=== PATIENT | male | born 1995 | race African-American/Black ===

== ENCOUNTER 2018-06-05 20:15 | Inpatient (IN) | payer OTHER ==
[2018-06-05 20:35] VITALS: TEMP 97.8; BMI 21.2
[2018-06-05] MEDS ORDERED: ONDANSETRON 4 MG/2 ML VIAL ONE (21:14)
[2018-06-05] MEDS ORDERED: SODIUM CHLORIDE 1,000 ML IV STA ×3 (21:27→23:54)
--- NOTE | 2018-06-05 21:31 | PDOC ---
History of Present Illness - General Chief Complaint: Nausea/Vomiting Stated Complaint: STOMACH VIRUS Time Seen by Provider: 06/05/18 21:02 History Source: Patient, Parent(s) Exam Limitations: Clinical Condition - History of Present Illness Initial Comments: 06/05/18 21:54 22M with no PMH presents to the ER with a chief complaint of nausea and vomiting since this morning. Patient states last night he was drinking alcohol, both liquor and beer, and also smoking marijuana. He ate and went to bed woke up and started vomiting. He states every time he vomits he starts to sweat and then gets chills. He states he ate rice and beans with chicken and ribs last night. No one else got sick. The patient does admit to drinking alcohol and smoking marijuana more than usual. Denies daily alcohol use. he denies chest pain or shortness of breath. He endorses what sounds like suprapubic pain. He does endorse some diffuse moderate abdominal pain. He denies urinary symptoms. The patient's mother is at bedside. Past History - Travel Traveled outside of the country in the last 30 days: No Close contact w/someone who was outside of country & ill: No - Past Medical History Allergies/Adverse Reactions: Allergies Allergy/AdvReac Type Severity Reaction Status Date / Time No Known Allergies Allergy Verified 06/05/18 20:35 Home Medications: Ambulatory Orders NK [No Known Home Medication] 06/05/18 COPD: No - Immunization History Immunization Up to Date: No - Suicide/Smoking/Psychosocial Hx Smoking History: Never smoked Have you smoked in the past 12 months: No Information on smoking cessation initiated: No Hx Alcohol Use: Yes Drug/Substance Use Hx: Yes Substance Use Type: Alcohol, Marijuana Review of Systems - Review of Systems Able to Perform ROS?: Yes Is the patient limited Moroccan proficient: No Constitutional: Yes: Chills, Fever (subjective. not measured) HEENTM: No: Symptoms Reported, See HPI, Eye Pain, Blurred Vision, Tearing, Recent change in vision, Double Vision, Cataracts, Ear Pain, Ocular Prothesis, Ear Discharge, Nose Pain, Nose Congestion, Tinnitus, Nose Bleeding, Hearing Loss , Throat Pain, Throat Swelling, Mouth Pain, Dental Problems, Difficulty Swallowing, Mouth Swelling, Other Respiratory: No: Symptoms reported, See HPI, Cough, Orthopnea, Shortness of Breath, SOB with Exertion, SOB at Rest, Stridor, Wheezing, Productive cough, Hemoptysis, Other Cardiac (ROS): No: Symptoms Reported, See HPI, Chest Pain, Edema, Irregular Heart Rate, Lightheadedness, Palpitations, Syncope, Chest Tightness, Other ABD/GI: Yes: See HPI, Nausea, Vomiting (bilious ), Other (abdominal pain) : Yes: Other (suprapubic pain) Musculoskeletal: No: Symptoms Reported, See HPI, Back Pain, Gout, Joint Pain, Joint Swelling, Muscle Pain, Muscle Weakness, Neck Pain, Joint Stiffness, Other Integumentary: No: Symptoms Reported, See HPI, Bruising, Change in Color, Change in Hair/Nails, Dryness, Erythema, Flushing, Lesions, Lumps, Pallor, Pruritus, Rash, Sweating, Other Neurological: No: Symptoms reported, See HPI, Headache, Numbness, Paresthesia, Pre-Existing Deficit, Seizure, Tingling, Tremors, Weakness, Unsteady Gait, Ataxia, Dizziness, Other Psychiatric: No: Anxiety, Depression, Frequent Crying, Stressors, Sleep Pattern Change, Emotional Problems, Mood Swings, Change in Appetite, Other Endocrine: No: Symptoms Reported, See HPI, Excessive Sweating, Flushing, Intolerance to Cold, Intolerance to Heat, Increased Hunger, Increased Thirst, Increased Urine, Unexplained Weight Gain, Unexplained Weight Loss, Change in Weight, Other Hematologic/Lymphatic: No: Symptoms Reported, See HPI, Anemia, Blood Clots, Easy Bleeding, Easy Bruising, Bleeding Diathesis, Lymph Node Abnormalities, Swollen Glands, Other *Physical Exam - Vital Signs Last Vital Signs Temp Pulse Resp BP Pulse Ox 97.8 F 85 16 131/54 100 06/05/18 20:32 06/05/18 20:32 06/05/18 20:32 06/05/18 20:32 06/05/18 20:32 - Physical Exam General Appearance: Yes: Nourished, Appropriately Dressed, Mild Distress, Other (vomiting yellow bile) HEENT: positive: EOMI, FRANCINE, Normal ENT Inspection, Other (dry mucous membranes) Neck: positive: Trachea midline, Supple Respiratory/Chest: positive: Lungs Clear, Normal Breath Sounds. negative: Respiratory Distress, Accessory Muscle Use Cardiovascular: positive: Regular Rhythm, Regular Rate, S1, S2. negative: Edema , JVD, Murmur Gastrointestinal/Abdominal: positive: Tender (moderate suprapubic tenderness ), Soft Musculoskeletal: negative: CVA Tenderness Integumentary: positive: Dry, Warm Neurologic: positive: powerhouse engineer II-XII NML intact, Fully Oriented, Alert ED Treatment Course - LABORATORY CBC & Chemistry Diagram: 06/05/18 21:30 06/05/18 21:30 Medical Decision Making - Medical Decision Making 06/05/18 21:30 22M with no PMH presents with nausea and vomiting since waking up this morning likely due to a hangover. possibility of gastroenteritis is also in the differential diagnosis. Will do: CBC CMP Mg Phos Lipase Lactic acid bolus 2 liters Normal saline zofran pepcid protonix maalox IV tylenol reassess blood cultures sent as patient is reporting subjective fever and chills. 06/05/18 22:21 Labs reviewed: lactic acid 3.0 WBC count 17.1 with a left shift Lipase WNL T. Bili elevated magnesium 1.7 will continue IVF and recheck lactic acid will do RUQ US will give 2gm magnesium sulfate nausea improved slightly with zofran reassess 06/06/18 01:10 US RUQ negative for any acute pathology Will call Dr. Oates to admit patient patient and mother requesting STD check. will order with next lactic acid check. 06/06/18 02:[address] Oates for inpatient med/surg who has accepted the patient and assumed care of the patient. She is aware of all ancillary testing that needs to be followed up. *DC/Admit/Observation/Transfer Diagnosis at time of Disposition: Hangover with complication - Discharge Dispostion Condition at time of disposition: Guarded Decision to Admit order: Yes - Referrals Referrals: Tushar Almonte MD [Primary Care Provider] - - Patient Instructions - Post Discharge Activity Sepsis - query Clarification: Sepsis follow up exam: CV: RRR S1 S2 no murmur Resp: CTAB ABD: Soft tender to palpation suprapubically
[2018-06-05] MEDS ORDERED: PANTOPRAZOLE SODIUM 40 MG VIAL IVPUSH ONE (21:35)
[2018-06-05] MEDS ORDERED: FAMOTIDINE 20 MG/50 ML IVPB 20 MG/50 ML MG IVPB ONE ×2 (21:35→21:38)
[2018-06-05] MEDS ORDERED: ACETAMINOPHEN 1000 MG/100 ML VIAL (NON FORMULARY) IVPB ONE (21:35)
[2018-06-05] MEDS ORDERED: MAG HYDROX/AL HYDROX/SIMETH 30 ML UNIT-DOSE CUP PO ONE (21:35)
[2018-06-05] MEDS ORDERED: ACETAMINOPHEN INJECTION 100 ML IVPB ONE (21:38)
[2018-06-05] MEDS ORDERED: PANTOPRAZOLE SODIUM 40 MG/100 ML BAG IVPB ONE (21:38)
[2018-06-05] MEDS ORDERED: MAG HYDROX/AL HYDROX/SIMETH 30 ML UNIT-DOSE CUP ONE (21:38)
[2018-06-05 21:41] LABS: BASO % 0.1 % (0-2.0); HEMATOCRIT 51.2 % (35.4-49); HEMOGLOBIN 17.4 GM/dL (11.7-16.9); LYMPH % 3.5 % (8-40); MCH 30.2 pg (25.7-33.7); MCHC 33.9 g/dl (32.0-35.9); MEAN CELL VOLUME 88.9 fl (80-96); MEAN PLT VOLUME 8.2 fl (7.5-11.1); MONO % 4.1 % (3.8-10.2); NEUT % 92.3 % (42.8-82.8); PLATELET COUNT 263 K/MM3 (134-434); RBC 5.76 M/mm3 (4.00-5.60); RDW 13.8 % (11.9-15.9); WHITE BLOOD COUNT 17.1 K/mm3 (4.0-10.0)
--- NOTE | 2018-06-05 21:58 | PDOC ---
Attending Attestation - Resident Resident Name: WandaCristybekah - ED Attending Attestation I have performed the following: I have examined & evaluated the patient, The case was reviewed & discussed with the resident, I agree w/resident's findings & plan, Exceptions are as noted - Medical Decision Making 06/05/18 21:55 A portion of this note was written by my scribe, under my supervision. Vital Signs Temp Pulse Resp BP Pulse Ox 97.8 F 85 16 131/54 100 06/05/18 20:32 06/05/18 20:32 06/05/18 20:32 06/05/18 20:32 06/05/18 20:32 22 year old male with no past medical history presents with nausea and vomiting. The patient reported that he drank a significant amount of alcohol last night and thinks that he may have eaten bad food. Stated he had a hangover this morning and felt nauseous. The patient had vomited multiple times and had poor appetite. no fevers, or chills. Complains of upper abdominal discomfort. Because of persistent vomiting, came into the ER. Differential includes food poisoning, gastroenteritis, pancreatitis, biliary colic, acute cholecystitis. I agree with the resident's plan for antiemetics, blood work, IVF and abdominal ultrasound. 06/05/18 22:05 Endorses smoking marijuana. Differential includes cyclical vomiting. 06/06/18 00:37 CBC, BMP 06/05/18 21:30 06/05/18 21:30 CMP Sodium 140 mmol/L (136-145) 06/05/18 21:30 Potassium 4.6 mmol/L (3.5-5.1) 06/05/18 21:30 Chloride 102 mmol/L (98-107) 06/05/18 21:30 Carbon Dioxide 27 mmol/L (21-32) 06/05/18 21:30 Anion Gap 11 (8-16) 06/05/18 21:30 BUN 17 mg/dL (7-18) 06/05/18 21:30 Creatinine 1.3 mg/dL (0.7-1.3) 06/05/18 21:30 Creat Clearance w eGFR > 60 (>60) 06/05/18 21:30 Random Glucose 130 mg/dL (74-106) H 06/05/18 21:30 Lactic Acid 3.0 mmol/L (0.0-2.0) H* 06/05/18 21:30 Calcium 10.4 mg/dL (8.5-10.1) H 06/05/18:30 Phosphorus 2.5 mg/dL (2.5-4.9) 06/05/18:30 Magnesium 1.7 mg/dL (1.8-2.4) L 06/05/18:30 Total Bilirubin 1.4 mg/dL (0.2-1.0) H 06/05/18 21:30 AST 21 U/L (15-37) 06/05/18:30 ALT 39 U/L (12-78) 06/05/18:30 Alkaline Phosphatase 31 U/L (45-117) L 06/05/18:30 Total Protein 9.0 g/dl (6.4-8.2) H 06/05/18:30 Albumin 4.7 g/dl (3.4-5.0) 06/05/18: Lipase 59 U/L (73-393) L 06/05/18:30 U/S negative. I suspect the elevated lactic acid and WBC is secondary to her vomiting and dehydration. Will repeat lactic acid. However, will need to admit the patient to the hospital for observation. <Zach Hopkins - Last Filed: 06/06/18 00:37> - HPI HPI: 06/05/18 22:04 The patient is a 22 year old male, with no significant past medical history, who presents to the emergency department with, epigastric discomfort and nausea with emesis. As per patient, he drank a significant amount of alcohol last night and believes he also ingested bad food. This morning he reports having a hangover with associated nausea. He reports multiple episodes of emesis, decreased appetite, and epigastric discomfort. He denies any recent fevers, chills, headache or dizziness. He denies any recent diarrhea or constipation. He denies any recent chest pain or shortness of breath. He denies any recent dysuria, frequency, urgency or hematuria. Allergies: NKA Past surgical history: None reported. Primary Care Physician: Dr. Tushar Almonte - Physicial Exam PE: 06/05/18 22:04 GENERAL: Awake, alert, and fully oriented, in no acute distress HEAD: No signs of trauma ENT: Dry mucous membranes. NECK: Normal ROM. LUNGS: Breath sounds equal, clear to auscultation bilaterally. No wheezes, and no crackles HEART: Regular rate and rhythm, normal S1 and S2, no murmurs, rubs or gallops ABDOMEN: Soft, nontender, normoactive bowel sounds. No guarding, no rebound. No masses NEUROLOGICAL: Cranial nerves II through XII grossly intact. Normal speech. SKIN: Warm, Dry, normal turgor, no rashes or lesions noted. - Medical Decision Making 06/06/18 00:[address] Oates's answering service for admission, awaiting call back. 01:36am Second call placed to Dr. Oates's answering service for admission, awaiting call back. <Vinnie Wing - Last Filed: 06/06/18 01:38> Attestations - Attestations 06/05/18 22:04 Documentation prepared by Vinnie Wnig, acting as medical technologist clinical for Zach Hopkins MD. <Vinnie Wing - Last Filed: 06/06/18 01:38>
[2018-06-05 22:03] LABS: ALBUMIN 4.7 g/dl (3.4-5.0); ALK PHOS 31 U/L (45-117); ANION GAP 11 (8-16); BILIRUBIN,TOTAL 1.4 mg/dL (0.2-1.0); BLOOD UREA NITROGEN 17 mg/dL (7-18); CALCIUM 10.4 mg/dL (8.5-10.1); CHLORIDE 102 mmol/L (98-107); CO2 27 mmol/L (21-32); CREATININE 1.3 mg/dL (0.7-1.3); GLUCOSE,RANDOM 130 mg/dL (74-106); LIPASE 59 U/L (73-393); MAGNESIUM 1.7 mg/dL (1.8-2.4); PHOSPHOROUS 2.5 mg/dL (2.5-4.9); POTASSIUM 4.6 mmol/L (3.5-5.1); SGOT/AST 21 U/L (15-37); SGPT/ALT 39 U/L (12-78); SODIUM 140 mmol/L (136-145)
[2018-06-05] MEDS ORDERED: MAGNESIUM SULF 50% (8.12 MEQ/2 ML-1 GM VIAL) IVPB ONE (22:20)
[2018-06-05 22:25] LABS: PLATELET ESTIMATE ADEQUATE
[2018-06-05] MEDS ORDERED: MAGNESIUM SULF 50% (8.12 MEQ/2 ML-1 GM VIAL) ONE (23:18)
[2018-06-06 01:40] LABS: URINE APPEARANCE CLEAR; URINE BILIRUBIN NEGATIVE (<2.0 mg/dL); URINE COLOR YELLOW; URINE GLUCOSE (UA) NEGATIVE (NEGATIVE); URINE KETONE TRACE (NEGATIVE); URINE LEUK ESTERASE NEGATIVE (NEGATIVE); URINE NITRITE NEGATIVE (NEGATIVE); URINE PROTEIN NEGATIVE (NEGATIVE); URINE UROBILINOGEN NEGATIVE mg/dL (0.2-1.0)
[2018-06-06] MEDS ORDERED: ONDANSETRON 4 MG/2 ML VIAL IVPUSH PRN (03:23)
[2018-06-06] MEDS ORDERED: DEXTROSE 5%-0.45% SALINE 1,000 ML IV SCH (03:30)
[2018-06-06 07:07] VITALS: BP 128/60; PULSE 72
[2018-06-06 07:11] LABS: BASO % 0.1 % (0-2.0); EOS % 0.3 % (0-4.5); HEMATOCRIT 42.4 % (35.4-49); HEMOGLOBIN 14.5 GM/dL (11.7-16.9); LYMPH % 7.7 % (8-40); MCH 30.5 pg (25.7-33.7); MCHC 34.2 g/dl (32.0-35.9); MEAN CELL VOLUME 89.2 fl (80-96); MEAN PLT VOLUME 7.9 fl (7.5-11.1); MONO % 6.5 % (3.8-10.2); NEUT % 85.4 % (42.8-82.8); PLATELET COUNT 190 K/MM3 (134-434); RBC 4.75 M/mm3 (4.00-5.60); RDW 13.6 % (11.9-15.9); WHITE BLOOD COUNT 11.8 K/mm3 (4.0-10.0)
[2018-06-06 07:34] LABS: ALBUMIN 3.7 g/dl (3.4-5.0); ANION GAP 8 (8-16); BLOOD UREA NITROGEN 12 mg/dL (7-18); CALCIUM 8.3 mg/dL (8.5-10.1); CHLORIDE 105 mmol/L (98-107); CO2 25 mmol/L (21-32); GLUCOSE,RANDOM 106 mg/dL (74-106); POTASSIUM 3.8 mmol/L (3.5-5.1); SGOT/AST 20 U/L (15-37); SGPT/ALT 32 U/L (12-78); SODIUM 138 mmol/L (136-145); TOT PROT 7.1 g/dl (6.4-8.2)
[2018-06-06 07:35] LABS: ALK PHOS 25 U/L (45-117)
--- NOTE | 2018-06-06 08:06 | PDOC ---
*Physical Exam - Vital Signs Last Vital Signs Temp Pulse Resp BP Pulse Ox 97.8 F 72 20 128/60 100 06/05/18 20:32 06/06/18 06:36 06/06/18 06:36 06/06/18 06:36 06/06/18 06:36 <Lauren Rowland - Last Filed: 06/06/18 08:07> - Vital Signs Last Vital Signs Temp Pulse Resp BP Pulse Ox 97.8 F 72 20 128/60 100 06/05/18 20:32 06/06/18 06:36 06/06/18 06:36 06/06/18 06:36 06/06/18 06:36 <Josephine Mejia - Last Filed: 06/06/18 11:30> ED Treatment Course - LABORATORY CBC & Chemistry Diagram: 06/06/18 06:30 06/06/18 06:30 - ADDITIONAL ORDERS Additional order review: Laboratory Results 06/06/18 06/06/18 06/05/18 02:00 01:25 21:30 Sodium Potassium Chloride Carbon Dioxide Anion Gap BUN Creatinine Creat Clearance w eGFR Random Glucose Lactic Acid 1.2 3.0 H* Calcium Phosphorus Magnesium Total Bilirubin AST ALT Alkaline Phosphatase Total Protein Albumin Lipase Urine Color Yellow Urine Appearance Clear Urine pH 5.0 Ur Specific Hart 1.031 Urine Protein Negative Urine Glucose (UA) Negative Urine Ketones Trace H Urine Blood Negative Urine Nitrite Negative Urine Bilirubin Negative Urine Urobilinogen Negative Ur Leukocyte Esterase Negative 06/05/18 21:30 Sodium 140 Potassium 4.6 Chloride 102 Carbon Dioxide 27 Anion Gap 11 BUN 17 Creatinine 1.3 Creat Clearance w eGFR > 60 Random Glucose 130 H Lactic Acid Calcium 10.4 H Phosphorus 2.5 Magnesium 1.7 L Total Bilirubin 1.4 H AST 21 ALT 39 Alkaline Phosphatase 31 L Total Protein 9.0 H Albumin 4.7 Lipase 59 L Urine Color Urine Appearance Urine pH Ur Specific Hart Urine Protein Urine Glucose (UA) Urine Ketones Urine Blood Urine Nitrite Urine Bilirubin Urine Urobilinogen Ur Leukocyte Esterase 06/05/18 21:30 RBC 5.76 H MCV 88.9 MCHC 33.9 RDW 13.8 MPV 8.2 Neutrophils % 92.3 H Lymphocytes % 3.5 L Monocytes % 4.1 Eosinophils % 0.0 Basophils % 0.1 - Medications Given in the ED: ED Medications Discontinued Medications Generic Name Dose Route Start Last Admin Trade Name Gloria PRN Reason Stop Dose Admin Acetaminophen 1,000 mg 06/05/18 21:35 06/05/18 22:11 Ofirmev Injection - IVPB 06/05/18 21:36 1,000 mg ONCE ONE Administration Al Hydroxide/Mg Hydroxide 30 ml 06/05/18 21:35 06/05/18 23:17 Mylanta Oral Suspension - PO 06/05/18 21:36 30 ml ONCE ONE Administration Diphenhydramine HCl 50 mg 06/06/18 00:51 06/06/18 02:04 Benadryl Injection - IVPB 06/06/18 00:52 50 mg ONCE ONE Administration Sodium Chloride 1,000 mls @ 1,000 mls/hr 06/05/18 21:27 06/05/18 21:28 Normal Saline - IV 06/05/18 22:26 1,000 mls/hr ASDIR STA Administration Sodium Chloride 1,000 mls @ 1,000 mls/hr 06/05/18 21:28 06/05/18 21:28 Normal Saline - IV 06/05/18 22:27 1,000 mls/hr ASDIR STA Administration Famotidine/Sodium Chloride 20 mg in 50 mls @ 100 mls/hr 06/05/18 21:35 21:49 Pepcid 20 Mg Premixed Ivpb - IVPB 06/05/18 22:04 100 mls/hr ONCE ONE Administration Sodium Chloride 1,000 mls @ 1,000 mls/hr 06/05/18 23:54 06/06/18 00:23 Normal Saline - IV 06/06/18 00:53 1,000 mls/hr ASDIR STA Administration Magnesium Sulfate 2 gm 06/05/18 22:20 06/06/18 00:23 Magnesium Sulfate IVPB 06/05/18 22:21 2 gm ONCE ONE Administration Pantoprazole Sodium 40 mg 06/05/18 21:35 06/05/18 21:49 Protonix Iv IVPUSH 06/05/18 21:36 40 mg ONCE ONE Administration <Lauren Rowland - Last Filed: 06/06/18 08:07> - LABORATORY CBC & Chemistry Diagram: 06/06/18 06:30 06/06/18 06:30 - ADDITIONAL ORDERS Additional order review: Laboratory Results 06/06/18 06/06/18 06/05/18 02:00 01:25 21:30 Sodium Potassium Chloride Carbon Dioxide Anion Gap BUN Creatinine Creat Clearance w eGFR Random Glucose Lactic Acid 1.2 3.0 H* Calcium Phosphorus Magnesium Total Bilirubin AST ALT Alkaline Phosphatase Total Protein Albumin Lipase Urine Color Yellow Urine Appearance Clear Urine pH 5.0 Ur Specific Hart 1.031 Urine Protein Negative Urine Glucose (UA) Negative Urine Ketones Trace H Urine Blood Negative Urine Nitrite Negative Urine Bilirubin Negative Urine Urobilinogen Negative Ur Leukocyte Esterase Negative 06/05/18 21:30 Sodium 140 Potassium 4.6 Chloride 102 Carbon Dioxide 27 Anion Gap 11 BUN 17 Creatinine 1.3 Creat Clearance w eGFR > 60 Random Glucose 130 H Lactic Acid Calcium 10.4 H Phosphorus 2.5 Magnesium 1.7 L Total Bilirubin 1.4 H AST 21 ALT 39 Alkaline Phosphatase 31 L Total Protein 9.0 H Albumin 4.7 Lipase 59 L Urine Color Urine Appearance Urine pH Ur Specific Hart Urine Protein Urine Glucose (UA) Urine Ketones Urine Blood Urine Nitrite Urine Bilirubin Urine Urobilinogen Ur Leukocyte Esterase 06/05/18 21:30 RBC 5.76 H MCV 88.9 MCHC 33.9 RDW 13.8 MPV 8.2 Neutrophils % 92.3 H Lymphocytes % 3.5 L Monocytes % 4.1 Eosinophils % 0.0 Basophils % 0.1 - Medications Given in the ED: ED Medications Discontinued Medications Generic Name Dose Route Start Last Admin Trade Name Freq PRN Reason Stop Dose Admin Acetaminophen 1,000 mg 06/05/18 21:35 06/05/18 22:11 Ofirmev Injection - IVPB 06/05/18 21:36 1,000 mg ONCE ONE Administration Al Hydroxide/Mg Hydroxide 30 ml 06/05/18 21:35 06/05/18 23:17 Mylanta Oral Suspension - PO 06/05/18 21:36 30 ml ONCE ONE Administration Diphenhydramine HCl 50 mg 06/06/18 00:51 06/06/18 02:04 Benadryl Injection - IVPB 06/06/18 00:52 50 mg ONCE ONE Administration Sodium Chloride 1,000 mls @ 1,000 mls/hr 06/05/18 21:27 06/05/18 21:28 Normal Saline - IV 06/05/18 22:26 1,000 mls/hr ASDIR STA Administration Sodium Chloride 1,000 mls @ 1,000 mls/hr 06/05/18 21:28 06/05/18 21:28 Normal Saline - IV 06/05/18 22:27 1,000 mls/hr ASDIR STA Administration Famotidine/Sodium Chloride 20 mg in 50 mls @ 100 mls/hr 06/05/18 21:35 21:49 Pepcid 20 Mg Premixed Ivpb - IVPB 06/05/18 22:04 100 mls/hr ONCE ONE Administration Sodium Chloride 1,000 mls @ 1,000 mls/hr 06/05/18 23:54 06/06/18 00:23 Normal Saline - IV 06/06/18 00:53 1,000 mls/hr ASDIR STA Administration Magnesium Sulfate 2 gm 06/05/18 22:20 06/06/18 00:23 Magnesium Sulfate IVPB 06/05/18 22:21 2 gm ONCE ONE Administration Pantoprazole Sodium 40 mg 06/05/18 21:35 06/05/18 21:49 Protonix Iv IVPUSH 06/05/18 21:36 40 mg ONCE ONE Administration <Josephine Mejia - Last Filed: 06/06/18 11:30> Medical Decision Making - Medical Decision Making 06/06/18 08:[address] Oates. Labs were reviewed, white blood count has decreased and lactic is normal. RPR and HIV tests pending. Patient to follow up with primary. No antibiotics needed at this time. We are signing him out AMA. <Josephine Mejia - Last Filed: 06/06/18 11:30> *DC/Admit/Observation/Transfer - Discharge Dispostion Decision to Admit order: No <Lauren Rowland - Last Filed: 06/06/18 08:07> <Josephine Mejia - Last Filed: 06/06/18 11:30> Diagnosis at time of Disposition: Vomiting Qualifiers: Vomiting type: unspecified Vomiting Intractability: unspecified Nausea presence : unspecified Qualified Code(s): R11.10 - Vomiting, unspecified - Discharge Dispostion Disposition: AGAINST MEDICAL ADVICE Condition at time of disposition: Stable
--- NOTE | 2018-06-06 09:35 | EKG ---
Test Reason : Blood Pressure : / mmHG Vent. Rate : 074 BPM Atrial Rate : 074 BPM P-R Int : 142 ms QRS Dur : 086 ms QT Int : 390 ms P-R-T Axes : 060 033 022 degrees QTc Int : 432 ms NORMAL SINUS RHYTHM WITH SINUS ARRHYTHMIA NORMAL ECG NO PREVIOUS ECGS AVAILABLE Confirmed by ANDERS KARIMI MD ([id number]) on 06/06/2018 9:35:25 AM Referred By: Confirmed By:ANDERS KARIMI MD
[2018-06-06] MEDS ORDERED: HEPARIN NA (PORCINE) 5,000 UNITS/ML 1ML VIAL SQ SCH (10:00)
--- NOTE | 2018-06-06 20:30 | HP ---
Admitting History and Physical - Smoking History Smoking history: Never smoked Have you smoked in the past 12 months: No - Alcohol/Substance Use Hx Alcohol Use: Yes Home Medications - Allergies Allergies/Adverse Reactions: Allergies Allergy/AdvReac Type Severity Reaction Status Date / Time No Known Allergies Allergy Verified 06/05/18 20:35 - Home Medications Home Medications: Ambulatory Orders NK [No Known Home Medication] 06/05/18 Physical Examination Vital Signs: Vital Signs Temperature 97.8 F 06/05/18 20:32 Pulse Rate 72 06/06/18 06:36 Respiratory Rate 20 06/06/18 06:36 Blood Pressure 128/60 06/06/18 06:36 O2 Sat by Pulse Oximetry (%) 100 06/06/18 06:36 Labs: CBC, BMP 06/06/18 06:30 06/06/18 06:30
== END 2018-06-06 08:13 | disposition left against medical advice (07) | DRG 249 ==
LOC: JER 20:15 → JERBED 06-06 02:43
PROVIDERS: ADMIT Internal Medicine; ATTEND Internal Medicine
DX: R11.2 Nausea with vomiting, unspecified (principal); K52.89 Other specified noninfective gastroenteritis and colitis; F10.10 Alcohol abuse, uncomplicated; F12.10 Cannabis abuse, uncomplicated
CPT/HCPCS: 36415; 71046-TC-FY; 76705-TC; 80053; 81003; 83605; 83690; 83735; 84100; 85025; 86593; 87040; 87491; 87529; 87591; 93005; 93010; 99284-25; J0131; J7030

== ENCOUNTER 2023-04-12 23:05 | Emergency (ER) | payer OTHER ==
[2023-04-12 23:13] VITALS: BP 104/70; PULSE 69; RESP 18; TEMP 98.8; BMI 25.8
[2023-04-13] MEDS ORDERED: IBUPROFEN 600 MG TABLET (FP) PO ONE ×2 (00:27)
== END 2023-04-13 01:09 | disposition home or self-care (01) ==
LOC: FER 23:05
DX: S63.612A Unspecified sprain of right middle finger, initial encounter (principal); X50.1XXA Overexertion from prolonged static or awkward postures, initial encounter
CPT/HCPCS: 73140-TC-RT-FY; 99283-25